=== PATIENT | female | born 2005 | race Caucasian/White ===

== ENCOUNTER 2024-03-06 14:02 | Emergency (ER) | payer BC, SELFPAY ==
--- NOTE | ~2024-03-06 | CT_ITS ---
EXAMINATION: CT brain wo con DATE: 03/06/2024 15:40 INDICATION: Head injury TECHNIQUE: Computed tomography (CT) of the head was performed without intravenous contrast. Sagittal and coronal reconstructions were performed. The mA was adjusted according to patient size. Iterative reconstruction technique was employed. The dose-length product was 605.33 mGy-cm. COMPARISON: None FINDINGS: Small right parietal scalp hematoma and laceration. No fracture. No acute intracranial hemorrhage, ac rosmery infarction or abnormal extra axial fluid collection. Ventricles are normal and symmetric. No mass /mass effect. The orbits, paranasal sinuses and mastoid air cells are normal. IMPRESSION: 1. Normal brain. No fracture or acute intracranial process. Reviewed, dictated and finalized at location B.
[2024-03-06 14:28] VITALS: BP 112/78; PULSE 87; RESP 18; TEMP 36.4; O2SAT 100
--- NOTE | 2024-03-06 16:57 | ED.GENADULT ---
HPI - General Adult General Chief complaint: Head Injury Stated complaint: head injury Time Seen by Provider: 03/06/24 16:33 History of Present Illness HPI narrative: Patient is a 18-year-old female who presents emergency department with chief complaint of head injury patient reports she fell [place] the [place] struck her head had no loss of consciousness but reports that she has a laceration to the back of her head. Patient was seen in triage and protocol to a CT head patient is not on blood thinners. The patient reports her tetanus is up-to-date Related Data Allergies Allergy/AdvReac Type Severity Reaction Status Date / Time No Known Allergies Allergy Verified 03/06/24 15:28 Review of Systems Review of Systems: A 10 system review of systems was completed on the patient and is negative except for what is stated in the HPI. Nursing and ancillary documentation was reviewed. Exam Narrative: GENERAL: Well-appearing, well-nourished, and in no acute distress. HEAD: Normocephalic, 1 cm laceration of the scalp. EYES: PERRLA and EOMI. ENT: Nares clear, no rhinorrhea or epistaxis. Mucous membranes moist. NECK: Supple. CHEST: Clear to auscultation. No respiratory distress. HEART: Regular rate and rhythm. No murmur heard. Normal peripheral pulses. ABDOMEN: Soft, nontender, nondistended, normal active bowel sounds. EXTREMITIES: Normal range of motion. No edema. SKIN: Warm, dry, no rash. NEURO: No focal deficits. Alert and oriented x3. PSYCH: Normal mood and affect. Course Vital Signs Vital signs: Vital Signs Temperature 36.4 C 03/06/24 14:28 Pulse Rate 87 03/06/24 14:28 Respiratory Rate 18 03/06/24 14:28 Blood Pressure 112/78 03/06/24 14:28 Pulse Oximetry 100 03/06/24 14:28 Temperature 36.4 C 03/06/24 14:28 Pulse Rate 87 03/06/24 14:28 Respiratory Rate 18 03/06/24 14:28 Blood Pressure 112/78 03/06/24 14:28 Pulse Oximetry 100 03/06/24 14:28 Procedures Laceration Laceration 1: Date: 03/06/24 Time: 16:59 Site: scalp Size (cm): 1 Description: linear Depth: simple, single layer ====== Skin Level ====== Skin layer closed with: demar Number of sutures: 1 ====== Subcutaneous Layer ====== ====== Muscle Layer ====== ====== Tendon Layer ====== Medical Decision Making Vital Signs Vital Signs: Vital Signs Temperature 36.4 C 03/06/24 14:28 Pulse Rate 87 03/06/24 14:28 Respiratory Rate 18 03/06/24 14:28 Blood Pressure 112/78 03/06/24 14:28 Pulse Oximetry 100 03/06/24 14:28 Temperature 36.4 C 03/06/24 14:28 Pulse Rate 87 03/06/24 14:28 Respiratory Rate 18 03/06/24 14:28 Blood Pressure 112/78 03/06/24 14:28 Pulse Oximetry 100 03/06/24 14:28 Discharge Plan Discharge Clinical Impression: Head injury, Laceration of scalp Patient Disposition: Home, Self-Care Condition: Stable Instructions: Antibiotic Form, Laceration (ED), Head Injury (ED), Staple Care (ED) Additional Instructions: Please have the staple removed in 7-10 days Follow-up/Referrals: Perico Richards MD [Primary Care Provider] - Time of Disposition: 17:01
== END 2024-03-06 17:13 | disposition home or self-care (01) ==
PROVIDERS: Emergency Provider Emergency Medicine; PCP Pediatrics
DX: S01.01XA Laceration without foreign body of scalp, initial encounter (principal); W17.89XA Other fall from one level to another, initial encounter
CPT/HCPCS: 12001; 70450; 99284